=== PATIENT | female | born 1990 | race Caucasian/White ===

== ENCOUNTER 2017-01-08 00:32 | Inpatient (IN) | payer BC ==
[~2017-01-08 00:32] MED LIST: IBUPROFEN800 M1 PO; NORCO 5-325 TA1 EACH PO; PRENATABS RX T1 EACH PO
[2017-01-08] MEDS ORDERED: NO HOME MEDICATION (00:53)
[2017-01-08 01:48] LABS: BASO % 0.1 % (0-2); EOS % 0.7 % (0-7); EOSINOPHIL ABSOLUTE COUNT 0.1 tho/cmm (0.0-0.7); HCT-HEMATOCRIT 33.8 % (34.0-49.0); HGB-HEMOGLOBIN 11.8 gm/dl (12.0-15.5); IMMATURE GRANULOCYTES ABSOLUTE 0.02 tho/cmm (0-0.03); IMMATURE GRANULOCYTES PERCENT 0.2 % (0-0.3); LYMPH % 27.3 % (20-45); LYMPH ABSOLUTE COUNT 2.4 tho/cmm (0.8-4.5); MCH (MEAN CORPUSCULAR HGB) 32.6 pg (28.0-32.0); MCHC MEAN CORPUSCULAR HGB CONC 34.9 % (32.0-36.0); MCV (MEAN CELL VOLUME) 93.4 fl (82.0-96.0); MEAN PLATELET VOLUME 10.3 cmc (9.4-12.4); MONOCYTE ABSOLUTE COUNT 0.5 tho/cmm (0.0-1.2); NEUTROPHIL ABSOLUTE COUNT 5.7 tho/cmm (1.6-8.0); NEUTROPHIL-AUTOMATED 5.7 tho/cmm (1.6-8.0); NEUTROPHILS % 65.7 % (40-80); PLATELET COUNT 152 tho/cmm (150-450); RED BLOOD COUNT 3.62 mil/cmm (4.00-5.20); RED CELL DISTRIBUTION WIDTH 12.8 % (12.4-16.4); WHITE BLOOD COUNT 8.7 tho/cmm (4.0-10.0)
[2017-01-09 06:10] LABS: BASO % 0.1 % (0-2); EOS % 0.3 % (0-7); HCT-HEMATOCRIT 35.3 % (34.0-49.0); HGB-HEMOGLOBIN 11.9 gm/dl (12.0-15.5); IMMATURE GRANULOCYTES ABSOLUTE 0.01 tho/cmm (0-0.03); IMMATURE GRANULOCYTES PERCENT 0.1 % (0-0.3); LYMPH % 22.2 % (20-45); MCH (MEAN CORPUSCULAR HGB) 31.9 pg (28.0-32.0); MCHC MEAN CORPUSCULAR HGB CONC 33.7 % (32.0-36.0); MCV (MEAN CELL VOLUME) 94.6 fl (82.0-96.0); MEAN PLATELET VOLUME 10.4 cmc (9.4-12.4); MONO % 6.3 % (0-12); MONOCYTE ABSOLUTE COUNT 0.6 tho/cmm (0.0-1.2); NEUTROPHIL ABSOLUTE COUNT 6.4 tho/cmm (1.6-8.0); NEUTROPHIL-AUTOMATED 6.4 tho/cmm (1.6-8.0); PLATELET COUNT 144 tho/cmm (150-450); RED BLOOD COUNT 3.73 mil/cmm (4.00-5.20); RED CELL DISTRIBUTION WIDTH 13.2 % (12.4-16.4)
[2017-01-10] MEDS ORDERED: IBUPROFEN800 M1 PO (02:28)
[2017-01-10] MEDS ORDERED: COLACE100 M1 PO (02:29)
[2017-01-10] MEDS ORDERED: IBUPROFEN600 M1 PO (02:30)
[2017-01-10] MEDS ORDERED: NORCO 5-325 TA1 EACH PO (09:58)
[2017-01-10] MEDS ORDERED: PRENATAL-U CAPS1 CAP PO (10:01)
== END 2017-01-10 12:55 | DRG 775 ==
LOC: LDR 00:32 → OBGE 20:15
PROVIDERS: Obstetrics & Gynecology Maternal & Fetal Medicine; ADMIT Obstetrics & Gynecology
PROC: 10E0XZZ Delivery of Products of Conception, External Approach (ICD-10-PCS; principal; 2017-01-08)
PROC: 0KQM0ZZ Repair Perineum Muscle, Open Approach (ICD-10-PCS; 2017-01-08)
DX: O69.81X0 Labor and delivery complicated by cord around neck, without compression, not applicable or unspecified (principal); O70.1 Second degree perineal laceration during delivery; Z3A.39 39 weeks gestation of pregnancy; Z37.0 Single live birth
CPT/HCPCS: J2590